=== PATIENT | female | born 1955 | race Caucasian/White ===

== ENCOUNTER 2018-04-25 08:35 | Day surgery (SDC) | payer OTHER ==
[2018-04-25] MEDS ORDERED: FENTAnyl 50 MCG/ML VIAL (10:08)
[2018-04-25] MEDS ORDERED: MIDAZOLAM 1 MG/ML 2 ML INJ ×2 (10:08)
== END 2018-04-25 15:10 | disposition home or self-care (01) ==
LOC: GIL 08:35
DX: Z12.11 Encounter for screening for malignant neoplasm of colon (principal); D12.6 Benign neoplasm of colon, unspecified; K64.4 Residual hemorrhoidal skin tags; K21.0 Gastro-esophageal reflux disease with esophagitis; K29.70 Gastritis, unspecified, without bleeding
CPT/HCPCS: 43239; 88305